=== PATIENT | female | born 1965 | race Caucasian/White ===

== ENCOUNTER 2019-01-19 18:39 | Emergency (ER) | payer SELFPAY ==
[2019-01-19] MEDS ORDERED: HYDROcodone/Acetaminophen 5/325 mg Tablet ONE (20:07)
--- NOTE | 2019-01-19 20:52 | RAD ---
CHEST ONE VIEW: 01/19/19 INDICATION: History of cough and right lower rib fracture. FINDINGS: Lungs are clear. Heart size is normal appearing. No pleural effusion is evident. No definite acute os seous abnormality is evident. IMPRESSION: No acute abnormality. POS: [facility]
== END 2019-01-19 20:53 | disposition home or self-care (01) ==
LOC: MADERS 18:39
DX: S29.011A Strain of muscle and tendon of front wall of thorax, initial encounter (principal); X58.XXXA Exposure to other specified factors, initial encounter
CPT/HCPCS: 71046